=== PATIENT | male | born 1985 | race Caucasian/White ===

== ENCOUNTER 2017-01-06 18:17 | Emergency (ER) | payer SELFPAY ==
[2017-01-06 18:32] VITALS: BP 146/90
== END 2017-01-06 19:55 | disposition left against medical advice (07) ==
LOC: UCCORT 18:17
DX: R07.89 Other chest pain (principal); Z53.21 Procedure and treatment not carried out due to patient leaving prior to being seen by health care provider
CPT/HCPCS: 93005

== ENCOUNTER 2017-04-28 08:13 | Emergency (ER) | payer SELFPAY ==
[2017-04-28 08:23] VITALS: BP 139/75
--- NOTE | 2017-04-28 08:28 | UC ---
Ear Complaint HPI - HPI Summary HPI Summary: Left ear pain onset last night in 32 year old. (+) mild hearing loss. (+) tinnitus. no vertigo. no discharge. [ End ] - History of Current Complaint Chief Complaint: UCEar Stated Complaint: RIGHT EAR PAIN Time Seen by Provider: 04/28/17 08:25 Hx Obtained From: Patient Onset/Duration: Sudden Onset - Allergies/Home Medications Allergies/Adverse Reactions: Allergies Allergy/AdvReac Type Severity Reaction Status Date / Time No Known Allergies Allergy Verified 04/28/17 08:23 Home Medications: Home Medications Acetaminophen TAB* [Tylenol TAB*] 975 mg PO DAILY PRN 04/28/17 [History Confirmed 04/28/17] PMH/Surg Hx/FS Hx/Imm Hx Previously Healthy: Yes - multiple ear infections in the past - Surgical History Surgical History: Yes Surgery Procedure, Year, and Place: ADENOIDECTOMY, EAR TUBES - Family History Known Family History: Positive: None - Social History Occupation: Employed Full-time Lives: With Family Alcohol Use: Rare Substance Use Type: None Smoking Status (MU): Never Smoked Tobacco Review of Systems ENT: Ear Ache All Other Systems Reviewed And Are Negative: Yes Physical Exam Triage Information Reviewed: Yes Appearance: Well-Appearing, No Pain Distress, Well-Nourished Vital Signs: Initial Vital Signs Temp 98 F 04/28/17 08:15 Pulse 62 04/28/17 08:15 Resp 18 04/28/17 08:15 BP 139/75 04/28/17 08:15 Vital Signs Reviewed: Yes Eye Exam: Normal ENT Exam: Normal ENT: Positive: TM bulging, TM dull, TM red - right and purulence behind the ear Dental Exam: Normal Neck exam: Normal Neck: Positive: 1 Respiratory Exam: Normal Cardiovascular Exam: Normal Musculoskeletal Exam: Normal Neurological Exam: Normal Psychological Exam: Normal Skin Exam: Normal Ear Complaint Course/Dx - Course Course Of Treatment: If sx worsen then go to ED or ENT referral . - Differential Dx/Diagnosis Differential Diagnosis/HQI/PQRI: Otitis Externa, Otitis Media, Perforated TM, URI Provider Diagnoses: Right Purulent AOM Discharge - Discharge Plan Condition: Good Disposition: HOME Prescriptions: Amoxicillin PO (*) [Amoxicillin 875 MG (*)] 875 mg PO BID #20 tab Neomyc/Polym/HC 1% OTIC SUSP* [Cortisporin Otic Susp 1%*] 4 drop RIGHT EAR TID # 1 btl Patient Education Materials: Otitis Media (ED) Referrals: Non Staff,Doctor [Primary Care Provider] - 3 Days Bridger Enriquez MD [Medical Doctor] - If Needed
== END 2017-04-28 08:45 | disposition home or self-care (01) ==
LOC: UCCORT 08:13
DX: H66.001 Acute suppurative otitis media without spontaneous rupture of ear drum, right ear (principal)
CPT/HCPCS: 99211; G0463